=== PATIENT | male | born 1950 | race Caucasian/White ===

== ENCOUNTER 2021-02-27 19:24 | Inpatient (IN) | payer OTHER ==
[~2021-02-27] VITALS: Ht 172.7 cm; Wt 74.2 kg
[2021-02-27] MEDS ORDERED: SODIUM CHLORIDE FLUSH 10ML SYR IVF ONE (20:00)
[2021-02-27] MEDS ORDERED: SODIUM CHLORIDE 0.9% 1,000ML IVBOLUS ONE (20:00)
[2021-02-27 20:04] LABS: BASOPHILS % (AUTO) 0 % (0-1); EOSINOPHILS % (AUTO) 1 % (1-7); LYMPHOCYTES % (AUTO) 14 % (22-44); MEAN CORPUSCULAR HEMOGLOBIN 29.9 pg (27.5-34.5); MEAN CORPUSCULAR HGB CONC 33.4 g/dL (33.2-36.2); MEAN PLATELET VOLUME 9.4 fL (7.4-10.4); MONOCYTES % (AUTO) 5 % (2-9); NEUTROPHILS % (AUTO) 80 % (42-75); PLATELET COUNT 245 x10^3/uL (130-400); RED BLOOD COUNT 5.04 x10^6/uL (4.38-5.82); RED CELL DISTRIBUTION WIDTH 14.7 % (9.4-14.8)
[2021-02-27 20:17] LABS: ALANINE AMINOTRANSFERASE 115 U/L (12-78); ALBUMIN 2.6 g/dL (3.4-5.0); ANION GAP 10 mmol/L (5-15); CALCIUM 7.3 mg/dL (8.5-10.1); CHLORIDE 102 mmol/L (98-107); CREATININE 1.43 mg/dL (0.7-1.3)
[2021-02-27 20:27] LABS: ALKALINE PHOSPHATASE 82 U/L (45-117); BILIRUBIN,TOTAL 1.6 mg/dL (0.2-1.0); CREATINE KINASE, TOTAL 66 U/L (39-308); TOTAL PROTEIN 6.2 g/dL (6.4-8.2); TROPONIN I < 0.015 ng/mL (0.000-0.045)
[2021-02-27] MEDS ORDERED: BISACODYL 10 MG SUPP PR PRN (21:30)
[2021-02-27] MEDS ORDERED: ONDANSETRON ODT 4 MG PO PRN (21:30)
[2021-02-27 22:14] LABS: CREATINE KINASE, TOTAL 64 U/L (39-308)
[2021-02-27 22:42] VITALS: BP 116/81
[2021-02-27] MEDS: SODIUM CHLORIDE 0.9% 1,000 ML IV SCH (23:03)
[2021-02-27] MEDS: HEPARIN 5,000 UNITS/ML, 1ML SQ SCH (23:04)
[2021-02-28 00:30] VITALS: BP 111/74
[2021-02-28] MEDS: NYSTATIN TOPICAL POWDER 15GM TP SCH ×3 (01:54→20:29)
[2021-02-28 03:43] LABS: MICROSCOPIC NOT IND
[2021-02-28 03:55] LABS: AMPHETAMINE SCREEN, URINE Negative (Negative); BARBITURATE SCREEN, URINE Negative (Negative); BENZODIAZEPINE SCREEN, URINE Negative (Negative); CANNABINOID SCREEN, URINE Negative (Negative); COCAINE SCREEN, URINE Negative (Negative); METHADONE SCREEN, URINE Negative (Negative); OPIATE SCREEN, URINE Negative (Negative)
[2021-02-28 04:45] LABS: ALBUMIN 2.4 g/dL (3.4-5.0); ANION GAP 9 mmol/L (5-15); CHLORIDE 108 mmol/L (98-107)
[2021-02-28 04:47] LABS: BASOPHILS % (AUTO) 1 % (0-1); EOSINOPHILS % (AUTO) 1 % (1-7); LYMPHOCYTES % (AUTO) 14 % (22-44); MEAN CORPUSCULAR HEMOGLOBIN 30.4 pg (27.5-34.5); MEAN CORPUSCULAR HGB CONC 34.6 g/dL (33.2-36.2); MEAN PLATELET VOLUME 9.3 fL (7.4-10.4); MONOCYTES % (AUTO) 7 % (2-9); NEUTROPHILS % (AUTO) 78 % (42-75); PLATELET COUNT 252 x10^3/uL (130-400); RED BLOOD COUNT 4.53 x10^6/uL (4.38-5.82); RED CELL DISTRIBUTION WIDTH 14.9 % (9.4-14.8)
[2021-02-28 04:49] LABS: ALANINE AMINOTRANSFERASE 103 U/L (12-78); ALKALINE PHOSPHATASE 73 U/L (45-117); BILIRUBIN,TOTAL 1.4 mg/dL (0.2-1.0); CREATININE 0.97 mg/dL (0.7-1.3); TOTAL PROTEIN 5.6 g/dL (6.4-8.2)
[2021-02-28] MEDS: HEPARIN 5,000 UNITS/ML, 1ML SQ SCH ×3 (06:42→23:43)
[2021-02-28] MEDS: SODIUM CHLORIDE 0.9% 1,000 ML IV SCH (06:42)
[2021-02-28 06:45] VITALS: BP 148/71
[2021-02-28] MEDS ORDERED: ACETAMINOPHEN 325 MG TABLET PO PRN (07:30)
[2021-02-28] MEDS: SENNA/DOCUSATE TABLET PO SCH (10:19)
[2021-02-28] MEDS: INSULIN LISPRO 100 UNITS/ML, PEN SQ-INSULIN SCH ×3 (11:00→20:26)
[2021-02-28 12:33] VITALS: BP 110/70
[2021-02-28 19:52] VITALS: BP 111/69
[2021-02-28] MEDS ORDERED: SODIUM CHLORIDE 0.9% 1,000 ML IV SCH (21:30)
[2021-03-01 01:04] VITALS: BP 104/64
[2021-03-01 04:45] LABS: BASOPHILS % (AUTO) 1 % (0-1); EOSINOPHILS % (AUTO) 2 % (1-7); LYMPHOCYTES % (AUTO) 21 % (22-44); MEAN CORPUSCULAR HEMOGLOBIN 30.6 pg (27.5-34.5); MEAN CORPUSCULAR HGB CONC 34.4 g/dL (33.2-36.2); MEAN PLATELET VOLUME 8.7 fL (7.4-10.4); MONOCYTES % (AUTO) 7 % (2-9); NEUTROPHILS % (AUTO) 70 % (42-75); PLATELET COUNT 273 x10^3/uL (130-400); RED BLOOD COUNT 3.97 x10^6/uL (4.38-5.82); RED CELL DISTRIBUTION WIDTH 15.3 % (9.4-14.8)
[2021-03-01 04:59] LABS: ALBUMIN 2.2 g/dL (3.4-5.0); ANION GAP 8 mmol/L (5-15); CHLORIDE 106 mmol/L (98-107)
[2021-03-01 05:05] LABS: ALANINE AMINOTRANSFERASE 87 U/L (12-78); ALKALINE PHOSPHATASE 67 U/L (45-117); BILIRUBIN,TOTAL 1.6 mg/dL (0.2-1.0); CREATININE 0.92 mg/dL (0.7-1.3); TOTAL PROTEIN 5.1 g/dL (6.4-8.2)
[2021-03-01 06:28] VITALS: BP 110/68
[2021-03-01] MEDS: INSULIN LISPRO 100 UNITS/ML, PEN SQ-INSULIN SCH ×4 (07:00→20:54)
[2021-03-01] MEDS: HEPARIN 5,000 UNITS/ML, 1ML SQ SCH ×2 (07:21→17:14)
[2021-03-01] MEDS: SENNA/DOCUSATE TABLET PO SCH (09:17)
[2021-03-01] MEDS: NYSTATIN TOPICAL POWDER 15GM TP SCH ×2 (09:17→20:50)
[2021-03-01 12:03] VITALS: BP 101/61
[2021-03-01 20:26] VITALS: BP 101/65
[2021-03-01] MEDS: SODIUM CHLORIDE 0.9% 1,000 ML IV SCH (20:55)
[2021-03-02] MEDS: HEPARIN 5,000 UNITS/ML, 1ML SQ SCH ×3 (01:14→17:06)
[2021-03-02 01:45] VITALS: BP 112/68
[2021-03-02 06:44] LABS: BASOPHILS % (AUTO) 2 % (0-1); EOSINOPHILS % (AUTO) 2 % (1-7); LYMPHOCYTES % (AUTO) 24 % (22-44); MEAN CORPUSCULAR HGB CONC 34.2 g/dL (33.2-36.2); MEAN PLATELET VOLUME 7.9 fL (7.4-10.4); MONOCYTES % (AUTO) 6 % (2-9); NEUTROPHILS % (AUTO) 67 % (42-75); PLATELET COUNT 295 x10^3/uL (130-400); RED BLOOD COUNT 3.96 x10^6/uL (4.38-5.82); RED CELL DISTRIBUTION WIDTH 15.1 % (9.4-14.8)
[2021-03-02 06:53] VITALS: BP 109/71
[2021-03-02] MEDS: INSULIN LISPRO 100 UNITS/ML, PEN SQ-INSULIN SCH ×2 (07:00→11:00)
[2021-03-02] MEDS: SENNA/DOCUSATE TABLET PO SCH (10:28)
[2021-03-02] MEDS: BISACODYL 10 MG SUPP PR SCH (10:28)
[2021-03-02] MEDS: NYSTATIN TOPICAL POWDER 15GM TP SCH ×2 (10:33→21:21)
[2021-03-02 13:13] VITALS: BP 98/61
[2021-03-02] MEDS: SODIUM CHLORIDE 0.9% 1,000 ML IV SCH (13:15)
[2021-03-02 17:10] LABS: OCCULT BLOOD POSITIVE (NEGATIVE)
[2021-03-02 18:56] VITALS: BP 110/74
[2021-03-03 00:27] VITALS: BP 122/92
[2021-03-03] MEDS: HEPARIN 5,000 UNITS/ML, 1ML SQ SCH ×3 (01:08→17:21)
[2021-03-03] MEDS: SODIUM CHLORIDE 0.9% 1,000 ML IV SCH ×2 (01:39→15:11)
[2021-03-03 06:40] VITALS: BP 123/75
[2021-03-03] MEDS: BISACODYL 10 MG SUPP PR SCH (09:00)
[2021-03-03] MEDS: SENNA/DOCUSATE TABLET PO SCH (09:37)
[2021-03-03] MEDS: NYSTATIN TOPICAL POWDER 15GM TP SCH ×2 (09:37→22:06)
[2021-03-03 15:25] VITALS: BP 106/65
[2021-03-03 18:48] VITALS: BP 113/69
[2021-03-04 00:14] VITALS: BP 118/70
[2021-03-04] MEDS: HEPARIN 5,000 UNITS/ML, 1ML SQ SCH ×3 (01:44→17:11)
[2021-03-04 06:48] VITALS: BP 129/73
[2021-03-04] MEDS: BISACODYL 10 MG SUPP PR SCH (08:38)
[2021-03-04] MEDS: SENNA/DOCUSATE TABLET PO SCH (08:38)
[2021-03-04] MEDS: NYSTATIN TOPICAL POWDER 15GM TP SCH ×2 (08:39→20:03)
[2021-03-04 13:01] VITALS: BP 109/70
[2021-03-04 18:56] VITALS: BP 99/65
[2021-03-05 00:21] VITALS: BP 116/70
[2021-03-05] MEDS: HEPARIN 5,000 UNITS/ML, 1ML SQ SCH ×3 (00:52→18:10)
[2021-03-05 07:28] VITALS: BP 104/65
[2021-03-05] MEDS: BISACODYL 10 MG SUPP PR SCH (10:29)
[2021-03-05] MEDS: POLYETHYLENE GLYCOL 17 GM PACKET PO PRN (10:30)
[2021-03-05] MEDS: NYSTATIN TOPICAL POWDER 15GM TP SCH ×2 (10:31→20:07)
[2021-03-05] MEDS: SENNA/DOCUSATE TABLET PO SCH (10:31)
[2021-03-05 13:19] VITALS: BP 109/70
[2021-03-05 19:22] VITALS: BP 115/70
[2021-03-06 00:31] VITALS: BP 102/64
[2021-03-06] MEDS: HEPARIN 5,000 UNITS/ML, 1ML SQ SCH ×3 (02:16→17:45)
[2021-03-06 07:55] VITALS: BP 108/66
[2021-03-06] MEDS: SENNA/DOCUSATE TABLET PO SCH (09:42)
[2021-03-06] MEDS: BISACODYL 10 MG SUPP PR SCH (09:42)
[2021-03-06] MEDS: POLYETHYLENE GLYCOL 17 GM PACKET PO PRN (09:46)
[2021-03-06] MEDS: NYSTATIN TOPICAL POWDER 15GM TP SCH ×2 (12:47→21:43)
[2021-03-06 13:35] LABS: MEAN CORPUSCULAR HEMOGLOBIN 30.3 pg (27.5-34.5); MEAN CORPUSCULAR HGB CONC 34.5 g/dL (33.2-36.2); MEAN PLATELET VOLUME 7.4 fL (7.4-10.4); PLATELET COUNT 322 x10^3/uL (130-400); RED BLOOD COUNT 4.05 x10^6/uL (4.38-5.82); RED CELL DISTRIBUTION WIDTH 14.9 % (9.4-14.8)
[2021-03-06 13:52] VITALS: BP 103/63
[2021-03-06 13:56] LABS: FREE T4 (FREE THYROXINE) 1.44 ng/dL (0.76-1.46)
[2021-03-06 13:58] LABS: BAND#(MANUAL) 0.26 x10^3/uL; BANDS%(MANUAL) 4 % (0-7); EOS#(MANUAL) 0.07 x10^3/uL (0.0-0.4); EOS% (MANUAL) 1 % (1-7); LYMPH#(MANUAL) 1.04 x10^3/uL (1-3.4); LYMPHS% (MANUAL) 16 % (22-44); METAMYELOCYTES# (MANUAL) 0.07 x10^3/uL (0-0); METAMYELOCYTES% (MANUAL) 1 % (0-1); MONOS% (MANUAL) 3 % (2-9); SEG#(MANUAL) 4.88 x10^3/uL (1.8-6.8); SEGS% (MANUAL) 75 % (42-75)
[2021-03-06 13:59] LABS: <PLATELET ESTIMATE> ADEQUATE; <PLT MORPHOLOGY> NORMAL PLT MORPH; <RBC MORPHOLOGY> NORMAL
[2021-03-06 19:30] VITALS: BP 115/68
[2021-03-07 00:20] VITALS: BP 111/70
[2021-03-07] MEDS: HEPARIN 5,000 UNITS/ML, 1ML SQ SCH ×2 (02:10→10:24)
[2021-03-07] MEDS ORDERED: LIOTHYRONINE 5 MCG TABLET PO SCH (06:00)
[2021-03-07 07:07] VITALS: BP 113/65
[2021-03-07] MEDS: SENNA/DOCUSATE TABLET PO SCH (09:00)
[2021-03-07] MEDS: BISACODYL 10 MG SUPP PR SCH (09:00)
[2021-03-07] MEDS: NYSTATIN TOPICAL POWDER 15GM TP SCH (09:23)
[2021-03-07] MEDS ORDERED: MAGNESIUM HYDROXIDE 8%, 30ML UDC PO SCH (10:30)
[2021-03-07] MEDS ORDERED: LIOT5TAB10 PO (11:15)
[2021-03-07] MEDS ORDERED: ACET325T26 PO (11:15)
[2021-03-07] MEDS ORDERED: NYST15PO2 TP (11:15)
[2021-03-07] MEDS ORDERED: MAGN400O7 PO (11:15)
[2021-03-07 12:41] VITALS: BP 103/65
== END 2021-03-07 14:57 | DRG 682 ==
LOC: ED 21:14 → 3N 21:54
PROVIDERS: ADMIT Family Medicine; ATTEND Family Medicine
DX: N17.9 Acute kidney failure, unspecified (principal); G93.41 Metabolic encephalopathy; E87.1 Hypo-osmolality and hyponatremia; E87.2 Acidosis; M62.82 Rhabdomyolysis; D64.9 Anemia, unspecified; E83.41 Hypermagnesemia; F10.10 Alcohol abuse, uncomplicated; K59.00 Constipation, unspecified; K70.10 Alcoholic hepatitis without ascites; L30.9 Dermatitis, unspecified; R32 Unspecified urinary incontinence; R62.7 Adult failure to thrive; Z72.0 Tobacco use; Z82.3 Family history of stroke; Z82.49 Family history of ischemic heart disease and other diseases of the circulatory system; R73.9 Hyperglycemia, unspecified
CPT/HCPCS: 36415; 71045; 74018; 76700; 80053; 80074; 80299; 80307; 80320; 81003; 82140; 82272; 82550; 82962; 83036; 83605; 83615; 83735; 84439; 84443; 84481; 84484; 85025; 93005; 96361; 96374; 99285; G0378; J1644; G0480; J7030

== ENCOUNTER 2021-05-16 10:59 | Outpatient (CLI) | payer OTHER ==
[~2021-05-16 10:59] MED LIST: ACET325T26 PO; LIOT5TAB10 PO; MAGN400O7 PO; NYST15PO2 TP
[2021-05-16 11:14] LABS: BASOPHILS % (AUTO) 1 % (0-1); EOSINOPHILS % (AUTO) 3 % (1-7); LYMPHOCYTES % (AUTO) 29 % (22-44); MEAN CORPUSCULAR HEMOGLOBIN 29.9 pg (27.5-34.5); MEAN CORPUSCULAR HGB CONC 33.8 g/dL (33.2-36.2); MEAN PLATELET VOLUME 7.3 fL (7.4-10.4); MONOCYTES % (AUTO) 4 % (2-9); NEUTROPHILS % (AUTO) 63 % (42-75); PLATELET COUNT 358 x10^3/uL (130-400); RED BLOOD COUNT 4.99 x10^6/uL (4.38-5.82); RED CELL DISTRIBUTION WIDTH 16.8 % (9.4-14.8)
[2021-05-16 11:28] LABS: ALBUMIN 3.2 g/dL (3.4-5.0); ANION GAP 6 mmol/L (5-15); CALCIUM 9.4 mg/dL (8.5-10.1); CHLORIDE 107 mmol/L (98-107)
[2021-05-16 11:55] LABS: % IRON SATURATION 25 % (20-55); ALANINE AMINOTRANSFERASE 23 U/L (12-78); ALKALINE PHOSPHATASE 101 U/L (45-117); BILIRUBIN, DIRECT 0.1 mg/dL (0.1-0.2); BILIRUBIN,INDIRECT 0.4 mg/dL (0.0-2.0); BILIRUBIN,TOTAL 0.5 mg/dL (0.2-1.0); CREATININE 1.19 mg/dL (0.7-1.3); FOLATE LEVEL 16.2 ng/mL (3.1-17.5); IRON LEVEL 69 mcg/dL (65-175); T4 (THYROXINE) 9.3 mcg/dL (4.5-12.1); TOTAL IRON BINDING CAPACITY 275 mcg/dL (250-450); TOTAL PROTEIN 7.9 g/dL (6.4-8.2)
== END 2021-05-16 23:59 | disposition home or self-care (01) ==
LOC: LAB 10:59
PROVIDERS: ATTEND Obstetrics & Gynecology
DX: R94.5 Abnormal results of liver function studies (principal); R73.9 Hyperglycemia, unspecified; E07.9 Disorder of thyroid, unspecified; K92.1 Melena; R63.4 Abnormal weight loss; F10.20 Alcohol dependence, uncomplicated
CPT/HCPCS: 36415; 80069; 80076; 82607; 82728; 82746; 83036; 83540; 83550; 84436; 84443; 84481; 85025

== ENCOUNTER 2021-05-20 12:35 | Outpatient (CLI) | payer OTHER | END 2021-05-20 23:59 | disposition home or self-care (01) | LOC: CFH 12:35 | PROVIDERS: ATTEND Obstetrics & Gynecology | DX: Z12.2 Encounter for screening for malignant neoplasm of respiratory organs (principal); J43.2 Centrilobular emphysema; I25.10 Atherosclerotic heart disease of native coronary artery without angina pectoris; J84.10 Pulmonary fibrosis, unspecified; Z87.891 Personal history of nicotine dependence | CPT/HCPCS: 71271 ==